=== PATIENT | male | born 1985 | race Two or more races ===

== ENCOUNTER 2017-12-25 12:33 | Emergency (ER) | payer SELFPAY ==
[2017-12-25 12:39] VITALS: BP 141/93; PULSE 78; RESP 18; TEMP 98
[2017-12-25] MEDS ORDERED: TDAP Vaccine 0.5 mL Syr IM ONE (12:58)
[2017-12-25] MEDS ORDERED: Oxycodone/Acetaminophen 5/325 mg Tab PO STA (12:58)
[2017-12-25] MEDS ORDERED: ceFAZolin 1 gm in NS 1 GM/100 ML BAG IVPB STA (13:06)
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
[2017-12-25 13:48] VITALS: O2SAT 100
== END 2017-12-25 13:37 | disposition left against medical advice (07) ==
LOC: ED 12:33 → MERGE 12:33 → ED 13:37
DX: S21.211A Laceration without foreign body of right back wall of thorax without penetration into thoracic cavity, initial encounter (principal); X99.9XXA Assault by unspecified sharp object, initial encounter